=== PATIENT | male | born 1980 | race Caucasian/White ===

== ENCOUNTER 2019-02-09 17:12 | Emergency (ER) | payer OTHER ==
--- NOTE | 2019-02-09 17:17 | PDOC ---
Rapid Medical Evaluation Time Seen by Provider: 02/09/19 17:15 Medical Evaluation: 02/09/19 17:15 I have performed a brief exam on this patient. CC: left foot pain s/p box dropped on foot PE: No bony tenderness, crepitus or deformity. NVI Orders: xray The patient will proceed to the ER for further evaluation. Discharge Disposition - Diagnosis Left foot pain - Referrals - Patient Instructions - Post Discharge Activity
[2019-02-09 17:18] VITALS: BP 144/91; PULSE 86; TEMP 97.9; BMI 27.4
--- NOTE | 2019-02-09 17:20 | PDOC ---
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 Was concerned may have an Achilles injury area and able to move foot but walking is painful Occurred: reports: just prior to arrival Severity: reports: mild, moderate Pain Location: reports: lower extremity (right foot ) Method of Injury: Yes: direct blow Associated Symptoms (Fall): denies symptoms Past History - Travel Traveled outside of the country in the last 30 days: No Close contact w/someone who was outside of country & ill: No - Past Medical History Allergies/Adverse Reactions: Allergies Allergy/AdvReac Type Severity Reaction Status Date / Time Sulfa (Sulfonamide Allergy Verified 02/09/19 17:19 Antibiotics) Home Medications: Ambulatory Orders NK [No Known Home Medication] 02/09/19 COPD: No - Suicide/Smoking/Psychosocial Hx Smoking History: Never smoked Information on smoking cessation initiated: No Hx Alcohol Use: No Drug/Substance Use Hx: No Review of Systems - Review of Systems Able to Perform ROS?: Yes Is the patient limited Croatian proficient: Yes Constitutional: Yes: See HPI. No: Symptoms Reported Musculoskeletal: Yes: Symptoms Reported, See HPI Integumentary: Yes: Symptoms Reported All Other Systems: Reviewed and Negative *Physical Exam - Vital Signs Last Vital Signs Temp Pulse Resp BP Pulse Ox 97.9 F 86 19 144/91 98 02/09/19 17:16 02/09/19 17:16 02/09/19 17:16 02/09/19 17:16 02/09/19 17:16 - Physical Exam General Appearance: Yes: Nourished, Appropriately Dressed, Apparent Distress HEENT: positive: ROHITH, Normal ENT Inspection, TMs Normal, Pharynx Normal Neck: positive: Supple. negative: Tender, Lymphadenopathy (R), Lymphadenopathy (L) Respiratory/Chest: positive: Lungs Clear Extremity: positive: Normal Capillary Refill, Normal Inspection. negative: Normal Range of Motion (flex and extend at ankle, negative Arias test. Calf muscle is strong. 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 Cast shoe reapplied/patient came with own, crutches provided *DC/Admit/Observation/Transfer Diagnosis at time of Disposition: Contusion Qualifiers: Encounter type: initial encounter Contusion area: foot Laterality: left Qualified Code(s): S90.32XA - Contusion of left foot, initial encounter - Discharge Dispostion Disposition: HOME Condition at time of disposition: Stable Decision to Admit order: No - Referrals Referrals: Sixto Hooker MD [Staff Physician] - - Patient Instructions Printed Discharge Instructions: DI for Contusion Additional Instructions: Rest, ice to area on and off for 15 minutes 4-6 times a day Avoid heavy lifting or exercise until pain and swelling is resolved or until further directed Keep area highly elevated to reduce swelling Use splints/Tylor wrap as directed Followup with orthopedist in one to 2 days if not improving, if significantly improved may wait one week for followup with orthopedist May use ibuprofen 2-200 mg tablets every 6 hours as needed for pain - Post Discharge Activity Forms/Work/School Notes: Back to Work
== END 2019-02-09 17:49 | disposition home or self-care (01) ==
LOC: JERFT 17:12
DX: S90.32XA Contusion of left foot, initial encounter (principal); W20.8XXA Other cause of strike by thrown, projected or falling object, initial encounter; Y93.89 Activity, other specified; Y92.89 Other specified places as the place of occurrence of the external cause; Y99.0 Civilian activity done for income or pay
CPT/HCPCS: 73610-TC-LT-FY; 73630-TC-LT; 99281-25

== ENCOUNTER 2023-07-21 19:54 | Emergency (ER) | payer SELFPAY ==
[2023-07-21 20:08] VITALS: BP 165/100; PULSE 89; RESP 18; TEMP 97.6; BMI 29.1
[2023-07-21] MEDS ORDERED: DIPHTH,PERTUSS(ACELL),TET 0.5 ML DISP.SYRIN IM ONE ×3 (21:08→22:33)
[2023-07-21] MEDS ORDERED: AMOX TR/POT CLAV 875MG/125MG TABLETS (FP) PO ONE (22:40)
[2023-07-21] MEDS ORDERED: AMOX TR/POT CLAV 875MG/125MG TABLETS (FP) ONE (22:41)
== END 2023-07-21 22:51 | disposition home or self-care (01) ==
LOC: JER 19:54 → JERFT 19:54
PROC: 3E0234Z Introduction of Serum, Toxoid and Vaccine into Muscle, Percutaneous Approach (ICD-10-PCS; principal; 2023-07-21)
DX: S61.234A Puncture wound without foreign body of right ring finger without damage to nail, initial encounter (principal); S61.250A Open bite of right index finger without damage to nail, initial encounter; W54.0XXA Bitten by dog, initial encounter
CPT/HCPCS: 73130-TC-RT-FY; 90715; 99283-25